=== PATIENT | female | born 1995 | race Caucasian/White ===

== ENCOUNTER 2019-10-01 11:52 | Outpatient (CLI) | payer BC, SELFPAY ==
--- NOTE | 2019-10-04 11:32 | WPDHOLTEREM ---
Holter/Event Monitor Holter/Event Monitor Date of procedure: 10/01/19 Procedure Type: 24 hour holter monitor Indications: Palpitations Conclusion: 1. 24 hour holter monitor on 10/01/19. 2. Underlying rhythm is sinus rhythm. HR range 50-152 bpm; average HR 84 bpm. 3. There are 29 premature supraventricular complexes and 3 supraventricular couplets. No supraventricular tachycardia. 4. There are 4 premature ventricular complexes. No ventricular tachycardia. 5. No sinoatrial or atrioventricular blocks. No significant pauses greater than 2 seconds. 6. Patient reports anxiousness and shivering/cold which demonstrate sinus rhythm, HR range 74-121 bpm.
== END 2019-10-01 11:53 | disposition home or self-care (01) ==
LOC: CHSCARD 11:59
PROVIDERS: PCP Family Medicine; Visit Provider Family Medicine
DX: R94.31 Abnormal electrocardiogram [ECG] [EKG] (principal); R00.2 Palpitations
CPT/HCPCS: 93225; 93226

== ENCOUNTER 2019-10-07 14:44 | Outpatient (CLI) | payer BC, SELFPAY ==
--- NOTE | 2019-10-07 14:44 | ECHO_ITS ---
Patient Info Name: Nadia Garcia Age: 24 years : 1995 Gender: Female Ht: 66 in Wt: 150 lbs BSA: 1.79 m2 HR: 121 bpm BP: 134 / 84 mmHg Heart Rhythm: Sinus Rhythm Technical Quality: Good Exam Date: 10/07/2019 3:01 PM Exam Location: [facility] Patient Status: Outpatient Admit Date: 10/07/2019 Staff Ordering Physician: Wally White MD [employer] Machine Operator: Lenore Mcfarlane RDCS Attending Provider: Wally White MD Referring Physician: Cindy LEON; Exam Type: CA echo doppler color flow Study Info Indications R00.2 - Palpitations R94.31 - Abnormal electrocardiogram ECG EKG Complete two-dimensional, color flow and Doppler transthoracic echocardiogram is performed. Strain analysis performed. History/Risk Factors Hypertension: No Dyslipidemia: No Congenital Heart Disease (CHD): No Peripheral Arterial Disease (PAD): No Myocardial Infarction (HI): No Chronic Lung Disease: No Obesity: No Renal Disease: No Coronary Artery Disease (CAD) No Congestive Heart Failure (CHF): No Cardiomyopathy/LV Systolic Dysfunction: No Diabetes Mellitus: No COPD: No Tobacco Use: Never Cerebrovascular Disease: No Deep Vein Thrombosis (DVT): None Dialysis: None Frailty Scale (CSHA): 1: Very Fit Cardiac Arrest: No Summary 1. Left ventricular chamber dimension is normal. 2. Left ventricular systolic function is normal, estimated at 65-70%. 3. The left ventricular diastolic function is normal. 4. E/e' 5 is not elevated. 5. Global longitudinal strain is normal at -17.9%. Left Ventricle E/e' 5 is not elevated. Global longitudinal strain is normal at -17.9%. Left ventricular chamber dimension is normal. Left ventricular systolic function is normal, estimated at 65-70%. The left ventricular diastolic function is normal. Right Ventricle Right ventricular chamber dimension is normal. Right ventricular systolic function is normal. Left Atria Left atrial chamber dimension is normal. Right Atria Right atrial chamber dimension is normal. Aortic Valve The aortic valve is trileaflet. There is no aortic valve stenosis. There is no aortic valve regurgitation. Pulmonic Valve There is no pulmonic regurgitation. Mitral Valve There is no mitral valve stenosis. There is no mitral valve regurgitation. Tricuspid Valve There is no tricuspid valve regurgitation. Pericardium/Pleural There is no pericardial effusion. Inferior Vena Cava Normal inferior vena cava with >50% collapse upon inspiration consistent with normal right atrial pressure, 5 mmHg. Aorta The aortic root size at the sinus of Valsalva is normal. Left Ventricular Outflow Tract Name Value Normal LVOT 2D LVOT Diameter 1.9 cm LVOT Doppler LVOT Peak Velocity 103 cm/s LVOT Peak Gradient 4 mmHg LVOT Mean Gradient 2 mmHg LVOT VTI 18 cm LVOT VTI/AV VTI Ratio 0.9 LVOT Stroke
== END 2019-10-07 14:45 | disposition home or self-care (01) ==
LOC: CHSIMG 14:46
PROVIDERS: PCP Family Medicine; Visit Provider Family Medicine
DX: R00.2 Palpitations (principal); R94.31 Abnormal electrocardiogram [ECG] [EKG]
CPT/HCPCS: 93306